=== PATIENT | male | born 1990 | race Two or more races ===

== ENCOUNTER 2024-04-30 19:36 | Emergency (ER) | payer BC ==
[2024-04-30] MEDS: Erythromycin Base 0.5% Ophth Oint 1 GM Tube EYELF ONE (20:05)
[2024-04-30] MEDS: Diphtheria,Pertussis(Acell),Tetanus Vaccine 0.5 ML Syringe IM ONE (20:13)
[2024-04-30] MEDS: Tetracaine HCl/PF 0.5% 4 ML Bottle EYELF ONE (20:16)
[2024-04-30] MEDS: Fluorescein 1 MG Ophth Strip EYELF ONE (20:16)
== END 2024-04-30 20:22 | disposition home or self-care (01) ==
LOC: CC.ED 19:36
DX: S05.02XA Injury of conjunctiva and corneal abrasion without foreign body, left eye, initial encounter (principal); Z23 Encounter for immunization; W44.8XXA Other foreign body entering into or through a natural orifice, initial encounter
CPT/HCPCS: 90471; 90715; 99283; 99283-25; A9270-GY